=== PATIENT | male | born 1990 | race Caucasian/White ===

== ENCOUNTER 2018-07-26 15:30 | Emergency (ER) | payer OTHER ==
[~2018-07-26] VITALS: Ht 180.3 cm; Wt 86.2 kg
--- NOTE | 2018-07-26 15:41 | Emergency Room Report ---
History of Present Illness General Chief Complaint: Overdose Source: Patient, EMS Present Illness HPI Patient is brought in by EMS. There was allegedly some argument with his partner. His partner called 911. The partner tried to cancel the call apparently. There was some misunderstanding where he had the impression that the patient had taken 10 Ambien. The patient denies this. EMS states that he took one Ambien. The patient denies medical problems and states he's not taking any other medication at this time. States he has no prior psychiatric history. He denies intent to harm himself at this time or anyone else. No prior attempt to harm self. Patient refuses to answer other questions. Allergies: Coded Allergies: No Known Allergies (Unverified , 07/26/18) Patient History Limited by: other - patient refusing to answer questions Past Medical History: see triage record Social History Narrative with partner Reviewed Nursing Documentation: PMH: Agreed; PSxH: Agreed Nursing Documentation-PMH Past Medical History: No Stated History Review of Systems All Other Systems: limited Physical Exam Vital Signs Date Time Temp Pulse Resp B/P (MAP) Pulse Ox O2 Delivery O2 Flow Rate FiO2 07/26/18 15:50 63 18 Room Air 99 07/26/18 15:50 98.1 121/65 Sp02 EP Interpretation: reviewed, normal General Appearance: well appearing, no apparent distress, GCS 15 Head: normocephalic Eyes: bilateral eye normal inspection, bilateral eye PERRL, bilateral eye EOMI ENT: moist mucus membranes Neck: supple Respiratory: lungs clear, normal breath sounds Cardiovascular #1: regular rate, rhythm Cardiovascular #2: 2+ radial (R) Gastrointestinal: normal inspection, normal bowel sounds, non tender, no mass, non-distended Musculoskeletal: back normal, gait/station normal, normal range of motion Neurologic: alert, oriented x3, grossly normal Psychiatric: no suicidal/homicidal ideation, other - beligeant and refusing to cooperate though staying at [facility] Skin: normal inspection, warm/dry Medical Decision Making Diagnostic Impression: Primary Impression: Labile personality Additional Impression: Evaluation for possible overdose ER Course Patient brought in with questionable overdose. Differential includes drug ingestion, suicide attempt, miscommunication, domestic dispute amongst others. Patient will be evaluated with labs. He'll be observed. Attempting to contact his partner to get the partner's story but patient refuses to allow me to contact his partner. Patient refusing to have labs or IV. Refuses to give urine. Advised patient that until we can determine that he is not in danger, he is on a medical hold. Partner arrived in ED. History corroborated. Discussed with partner who states they had an argument. Misunderstanding as to the Ambien ingestion. During this discussion, patient belligerent and abusive to staff. Clinically, the patient was observed for long enough to determine that there was not a significant ingestion. Discussed safety with partner. He feels the patient is safe at this time. No apparent medical emergency at this time. Patient stable for outpatient observation and treatment. Last Vital Signs Date Time Temp Pulse Resp B/P (MAP) Pulse Ox O2 Delivery O2 Flow Rate FiO2 07/26/18 18:05 98.1 63 18 122/65 Room Air 99 63 Status: unchanged Disposition: HOME, SELF-CARE Condition: Stable Bobby Arshad MD Jul 26, 2018 15:41
[2018-07-26 15:50] VITALS: BP 121/65
[2018-07-26 16:05] VITALS: BP 122/65
[2018-07-26 18:05] VITALS: BP 122/65
== END 2018-07-26 16:05 | disposition home or self-care (01) ==
LOC: EDBD 15:30 → EMR 16:05
DX: F60.3 Borderline personality disorder (principal)
CPT/HCPCS: 99282

== ENCOUNTER 2019-05-11 17:58 | Emergency (ER) | payer OTHER ==
[~2019-05-11] VITALS: Ht 175.3 cm; Wt 86.2 kg
--- NOTE | 2019-05-11 18:28 | NUR ---
ED Nurse Note: PT WALKED IN TO ER TODAY FROM HOME. AOX4. PT C/O INTERMITTENT LEFT TESTICLE PAIN AND SWELLING X 3 YEARS AGO. PT STATES HE CAME INTO ER TODAY BECAUSE HE NEVER HAD PAIN THAT LASTED FOR THIS LONG BEFORE. ON ASSESSMENT, OBVIOUS SWELLING NOTED TO SCROTUM WITH SENSITIVITY TO TOUCH. PT DENIES PENILE DISCHARGE OR BLEEDING.
[2019-05-11 18:29] VITALS: BP 132/86
[2019-05-11 18:42] LABS: APPEARANCE,URINE CLOUDY; BILIRUBIN, URINE NEGATIVE (NEGATIVE); COLOR,URINE PALE YELLOW; GLUCOSE, URINE (UA) NEGATIVE (NEGATIVE); KETONES,URINE NEGATIVE (NEGATIVE); LEUKOCYTE ESTERASE ,URINE 3+ (NEGATIVE); NITRITE,URINE NEGATIVE (NEGATIVE); PH,URINE 6 (4.5-8.0); PROTEIN,URINE 2+ (NEGATIVE); UROBILINOGEN,URINE NORMAL MG/DL (0.0-1.0)
[2019-05-11] MEDS ORDERED: Tylenol #3 tab (300mg/30mg) ORAL ONE (18:45)
--- NOTE | 2019-05-11 18:45 | NUR ---
ED Nurse Note: Called aide for ultrasound. states ultrasound will be here in 5 minutes
--- NOTE | 2019-05-11 18:53 | Emergency Room Report ---
History of Present Illness General Chief Complaint: Male Urogenital Problems Source: Patient Present Illness HPI 28-year-old male presents to the emergency department complaining of acute onset of 8 out of 10 severity testicular pain and swelling that began 24 hours ago. Patient reports he has had a history of testicular swelling with episodes of pain intermittently x2 years however the symptoms he is experiencing currently are out of proportion to what he typically experiences. Patient reports multiple ultrasounds with no actual diagnosis in the past. Patient denies fevers or chills. Patient reports he had an MRI as at one point cancer was suspected. Patient denies night sweats, significant weight loss or history of cancer in the family. Patient denies penile discharge, dysuria, urinary frequency. Patient reports pain localized to the left testicle with swelling and soft tissue swelling above the testicle. Patient denies testicular trauma. He denies having any relieving factors he reports palpation or sitting aggravates his symptoms. Denies hx of hernias. Allergies: Coded Allergies: No Known Allergies (Unverified , 07/26/18) Patient History Past Medical History: see triage record Past Surgical History: none Pertinent Family History: none Immunizations: UTD Reviewed Nursing Documentation: PMH: Agreed; PSxH: Agreed Nursing Documentation-PMH Past Medical History: No Stated History Review of Systems All Other Systems: negative except mentioned in HPI Physical Exam Vital Signs Date Time Temp Pulse Resp B/P (MAP) Pulse Ox O2 Delivery O2 Flow Rate FiO2 05/11/19 18:09 97.9 73 20 136/88 (104) 96 Room Air Sp02 EP Interpretation: reviewed, normal General Appearance: alert, GCS 15, non-toxic, mild distress Head: normocephalic, atraumatic Eyes: bilateral eye normal inspection, bilateral eye PERRL ENT: hearing grossly normal, normal voice Neck: full range of motion Respiratory: lungs clear, normal breath sounds, speaking full sentences Cardiovascular #1: regular rate, rhythm Gastrointestinal: normal bowel sounds, non tender, soft, non-distended, no guarding, hernia - quiestionable inguinal hernia into the left testicle Rectal: deferred Genitourinary: normal inspection, no CVA tenderness, penis normal, other - left testicle is high riding, indurated and has copeland clapper appearance. Swelling in the left inguinal area, no palpable LAD, tenderness in the left testicle with palpation of the soft tissue swelling. cremasteric reflex appears to be intact. Musculoskeletal: back normal, gait/station normal, normal range of motion, non- tender Neurologic: alert, oriented x3, responsive, motor strength/tone normal, sensory intact, speech normal, grossly normal Psychiatric: judgement/insight normal Lymphatic: no adenopathy Medical Decision Making PA Attestation Dr. Fernandez is my supervising Physician whom patient management has been discussed with. Diagnostic Impression: Primary Impression: Epididymitis, left Additional Impressions: Hydrocele, bilateral Possible inguinal hernia ER Course 28-year-old male presents to the emergency department complaining of acute onset of 8 out of 10 severity testicular pain and swelling that began 24 hours ago. Patient reports he has had a history of testicular swelling with episodes of pain intermittently x2 years however the symptoms he is experiencing currently are out of proportion to what he typically experiences. Patient reports multiple ultrasounds with no actual diagnosis in the past. Patient denies fevers or chills. Patient reports he had an MRI as at one point cancer was suspected. Patient denies night sweats, significant weight loss or history of cancer in the family. Patient denies penile discharge, dysuria, urinary frequency. Patient reports pain localized to the left testicle with swelling and soft tissue swelling above the testicle. Patient denies testicular trauma. He denies having any relieving factors he reports palpation or sitting aggravates his symptoms. Denies hx of hernias. Ddx considered but are not limited to testicular torsion, epididymitis, orchitis , abscess, hernia Vital signs: are WNL, pt. is afebrile H&PE most consistent with possible testicular torsion as well as inguinal hernia. Will do imaging and labs. ORDERS: -UA: positive for UTI will treat as STI -CBC: Pt. Refused. -CMP: Pt. Refused - Testicular ultrasound: "Bilateral hydrocele in addition to thickened spermatic cord with questionable epididymitis versus inguinal hernia recommend clinical correlation" per radiology-please see official radiology report for further details. - -Wanted to do CT abdomen and Pelvis with contrast: Pt. refuses imaging and labs. He reports he has somewhere to be. ED INTERVENTIONS: - T#3 PO for pain. -Rocephin 250IU IM -Azithromycin 1g PO Very difficult patient intermittent explosive anger, Conduct disorder highly suspected. previous visit here documents labile personality and I agree with this preliminary dx. - Pt. initially refuses US- d/w pt. that he would have to sign AMA if he refuses. - Pt. refuses blood draw for CT. DISPOSITION:AMA. - At this time the patient is requesting to leave AGAINST MEDICAL ADVICE. I believe that this patient has the capacity to make decisions on his own. I discussed with the patient the risks of leaving AMA. Some of these risks include delay in diagnosis and treatment, as well as worsening of symptoms, organ damage, and permanent disability or even . After discussing these risks with the patient. He continues to express his want to leave AGAINST MEDICAL ADVICE. I encouraged the patient to return at any time, and that he will be welcome here in the emergency department to continue medical management. Labs Test 05/11/19 18:18 Urine Color Pale yellow Urine Appearance Cloudy Urine pH 6 (4.5-8.0) Urine Specific [place] 1.020 (1.005-1.035) Urine Protein 2+ (NEGATIVE) Urine Glucose (UA) Negative (NEGATIVE) Urine Ketones Negative (NEGATIVE) Urine Blood 2+ (NEGATIVE) Urine Nitrite Negative (NEGATIVE) Urine Bilirubin Negative (NEGATIVE) Urine Urobilinogen Normal MG/DL (0.0-1.0) Urine Leukocyte Esterase 3+ (NEGATIVE) Urine RBC 0-2 /HPF (0 - 0) Urine WBC Tntc /HPF (0 - 0) Urine Squamous Epithelial Cells None /LPF (NONE/OCC) Urine Bacteria Few /HPF (NONE) CT/MRI/US Diagnostic Results CT/MRI/US Diagnostic Results : Imaging Test Ordered: Testicular US Impression "Bilateral hydrocele in addition to thickened spermatic cord with questionable epididymitis versus inguinal hernia recommend clinical correlation" per radiology-please see official radiology report for further details. Last Vital Signs Date Time Temp Pulse Resp B/P (MAP) Pulse Ox O2 Delivery O2 Flow Rate FiO2 05/11/19 18:29 98.2 76 18 132/86 98 Room Air Status: improved Disposition: AGAINST MEDICAL ADVICE Condition: Unknown Scripts Ibuprofen* (MOTRIN*) 600 Mg Tablet 600 MG ORAL THREE TIMES A DAY, #20 TAB 0 Refills Prov: Benita Pham 05/11/19 Referrals: NON PHYSICIAN (PCP) Patient Instructions: Hydrocele, Adult, Inguinal Hernia, Adult, [id number] Additional Instructions: You are leaving AMA, before complete evaluation with necessary CT imaging can be performed. This can cause delayed diagnosis as well as treatment, and ultimately cause worsening of your symptoms, damage to organs, permanent disability or even . You are encouraged to return to the ER at any time if you want to continue your evaluation Benita Pham May 11, 2019 18:53
--- NOTE | 2019-05-11 18:57 | NUR ---
ED Nurse Note: Pt refused blood drawn, PA notified.
--- NOTE | 2019-05-11 19:00 | NUR ---
ED Nurse Note: US AT BEDSIDE.
--- NOTE | 2019-05-11 19:08 | NUR ---
HAND-OFF: REPORT GIVEN TO MICHAEL NASH.
[2019-05-11] MEDS ORDERED: IBUPROFEN600 MG ORAL (20:40)
[2019-05-11] MEDS ORDERED: Azithromycin 250mg tab ORAL ONE (20:45)
[2019-05-11] MEDS ORDERED: Lidocaine 1% MPF 10mg/ml 5ml INJ ONE (20:45)
[2019-05-11 20:52] VITALS: BP 132/86
--- NOTE | 2019-05-11 20:56 | NUR ---
AMA: Patient decided to leave AMA and refuse recommended care, patient vervalized understanding of brevity of situation and provided a signature to affirm that understanding. SEE AMA FORM.
--- NOTE | 2019-05-12 12:03 | Diagnostic Imaging Report ---
Indications: Testicular pain and swelling Technique: Grayscale and duplex images of the scrotum Comparison: none Findings:The right testicle measures 3.7cm in length. It demonstrates normal echogenicity. Normal Doppler flow. Normal epididymis. There is a small hydrocele The left testicle measures 4.2 cm in length. It demonstrates normal echogenicity and normal Doppler flow. Normal epididymis. Hypervascular extratesticular structure in the region of the traumatic cord/lower inguinal canal is noted, probably thickened spermatic cord. Small inguinal hernia also possible Impression: Thickened spermatic cord with possible varicocele versus small adrenal hernia.. Former, could indicate inflammation of the spermatic cord and/or epididymitis Correlate with clinical findings No evidence of testicular torsion Incidental finding bilateral small hydroceles This agrees with the preliminary interpretation provided overnight by Dr. Cuellar
== END 2019-05-11 20:58 | disposition left against medical advice (07) ==
LOC: EMR 18:20
DX: N45.1 Epididymitis (principal); N43.3 Hydrocele, unspecified; R45.4 Irritability and anger
CPT/HCPCS: 76870; 81003; 87086; 96372; 96374; 99284; J0696; Q0144